=== PATIENT | female | born 1995 | race Caucasian/White ===

== ENCOUNTER 2018-11-18 18:41 | Emergency (ER) | payer SELFPAY ==
[2018-11-18] MEDS ORDERED: Dexamethasone 10 MG/ML VIAL ONE (19:08)
[2018-11-18] MEDS ORDERED: Ketorolac Tromethamine 60 MG/2 ML VIAL ONE (19:08)
== END 2018-11-18 19:20 | disposition home or self-care (01) ==
LOC: MADERS 18:41
DX: M54.16 Radiculopathy, lumbar region (principal); I10 Essential (primary) hypertension
CPT/HCPCS: 96372; J1100; J1885